=== PATIENT | male | born 1985 | race Two or more races ===

== ENCOUNTER → 2018-05-21 | Outpatient (CLI) | payer BC ==
--- NOTE | 2018-05-21 16:31 | RAD ---
Indications: Upper back pain for 4 days. No known injury. 3 view cervical spine series: No acute fracture or discitis or osteolytic process or prevertebral soft tissue swelling is evident. Minimal grade 1 anterolisthesis of C5-6 is seen. Mild degenerative endplate spurring is seen at C5-6 and C6-7 without disc space narrowing. IMPRESSION: Minimal degenerative cervical spondylosis. Three-view thoracic spine series: No compression fracture or discitis or osteolytic process is evident. IMPRESSION: No acute compression fracture. Electronically signed by: Surinder Gonzalez MD (05/21/2018 4:28 PM) [facility]
== END | disposition home or self-care (01) ==
LOC: RAD 12:45
PROVIDERS: ATTEND Physician Assistant Surgical
DX: M54.6 Pain in thoracic spine (principal); M47.892 Other spondylosis, cervical region; M46.02 Spinal enthesopathy, cervical region
CPT/HCPCS: 72040; 72072